=== PATIENT | male | born 1970 | race Caucasian/White ===

== ENCOUNTER 2019-12-06 09:41 | Outpatient (CLI) | payer OTHER, SELFPAY | END 2019-12-06 09:42 | disposition home or self-care (01) | PROVIDERS: Visit Provider Nurse Practitioner Family | DX: I87.2 Venous insufficiency (chronic) (peripheral) (principal); L97.822 Non-pressure chronic ulcer of other part of left lower leg with fat layer exposed | CPT/HCPCS: 87070; 87077; 87176; 87186; 87205 ==

== ENCOUNTER 2019-12-08 07:56 | Outpatient (CLI) | payer OTHER, SELFPAY | END 2019-12-08 07:57 | disposition home or self-care (01) | LOC: WOUND 07:57 | PROVIDERS: Visit Provider Surgery | DX: I87.2 Venous insufficiency (chronic) (peripheral) (principal); L97.222 Non-pressure chronic ulcer of left calf with fat layer exposed | CPT/HCPCS: 29581 ==

== ENCOUNTER 2019-12-11 10:50 | Outpatient (CLI) | payer OTHER, SELFPAY | END 2019-12-11 10:51 | disposition home or self-care (01) | LOC: WOUND 10:50 | PROVIDERS: Visit Provider Nurse Practitioner Family | DX: I87.2 Venous insufficiency (chronic) (peripheral) (principal); L97.222 Non-pressure chronic ulcer of left calf with fat layer exposed | CPT/HCPCS: 29581 ==

== ENCOUNTER 2019-12-13 15:28 | Outpatient (CLI) | payer OTHER, SELFPAY | END 2019-12-13 15:29 | disposition home or self-care (01) | LOC: WOUND 15:28 | PROVIDERS: Visit Provider Thoracic Surgery (Cardiothoracic Vascular Surgery) | DX: I87.2 Venous insufficiency (chronic) (peripheral) (principal); L97.822 Non-pressure chronic ulcer of other part of left lower leg with fat layer exposed | CPT/HCPCS: 11042; 11045 ==

== ENCOUNTER 2019-12-18 09:08 | Outpatient (CLI) | payer OTHER, SELFPAY | END 2019-12-18 09:09 | disposition home or self-care (01) | LOC: WOUND 09:10 | PROVIDERS: Visit Provider Nurse Practitioner Family | DX: I87.2 Venous insufficiency (chronic) (peripheral) (principal); L97.822 Non-pressure chronic ulcer of other part of left lower leg with fat layer exposed | CPT/HCPCS: 11042; 11045 ==

== ENCOUNTER 2019-12-20 07:56 | Outpatient (CLI) | payer OTHER, SELFPAY | END 2019-12-20 07:57 | disposition home or self-care (01) | LOC: WOUND 07:57 | PROVIDERS: Visit Provider Nurse Practitioner Family | DX: I87.2 Venous insufficiency (chronic) (peripheral) (principal); L97.222 Non-pressure chronic ulcer of left calf with fat layer exposed | CPT/HCPCS: 29581 ==

== ENCOUNTER 2019-12-22 08:01 | Outpatient (CLI) | payer OTHER, SELFPAY | END 2019-12-22 08:02 | disposition home or self-care (01) | LOC: WOUND 08:01 | PROVIDERS: Visit Provider Surgery | DX: I87.2 Venous insufficiency (chronic) (peripheral) (principal); L97.222 Non-pressure chronic ulcer of left calf with fat layer exposed | CPT/HCPCS: 29581 ==

== ENCOUNTER 2019-12-25 07:58 | Outpatient (CLI) | payer OTHER, SELFPAY | END 2019-12-25 07:59 | disposition home or self-care (01) | LOC: WOUND 07:58 | PROVIDERS: Visit Provider Nurse Practitioner Family | DX: I87.2 Venous insufficiency (chronic) (peripheral) (principal); L97.822 Non-pressure chronic ulcer of other part of left lower leg with fat layer exposed | CPT/HCPCS: 29581 ==

== ENCOUNTER 2019-12-27 08:10 | Outpatient (CLI) | payer OTHER, SELFPAY | END 2019-12-27 08:11 | disposition home or self-care (01) | LOC: WOUND 08:10 | PROVIDERS: Visit Provider Thoracic Surgery (Cardiothoracic Vascular Surgery) | DX: I87.2 Venous insufficiency (chronic) (peripheral) (principal); L97.222 Non-pressure chronic ulcer of left calf with fat layer exposed | CPT/HCPCS: 29581 ==

== ENCOUNTER 2019-12-29 08:02 | Outpatient (CLI) | payer OTHER, SELFPAY | END 2019-12-29 08:03 | disposition home or self-care (01) | LOC: WOUND 08:03 | PROVIDERS: Visit Provider Surgery | DX: I87.2 Venous insufficiency (chronic) (peripheral) (principal); L97.222 Non-pressure chronic ulcer of left calf with fat layer exposed | CPT/HCPCS: 29581 ==

== ENCOUNTER 2020-01-01 08:13 | Outpatient (CLI) | payer OTHER, SELFPAY | END 2020-01-01 08:14 | disposition home or self-care (01) | LOC: WOUND 08:14 | PROVIDERS: Visit Provider Nurse Practitioner Family | DX: I87.2 Venous insufficiency (chronic) (peripheral) (principal); L97.822 Non-pressure chronic ulcer of other part of left lower leg with fat layer exposed | CPT/HCPCS: 11042; 11045 ==

== ENCOUNTER 2020-01-03 08:12 | Outpatient (CLI) | payer OTHER, SELFPAY | END 2020-01-03 08:13 | disposition home or self-care (01) | LOC: WOUND 08:12 | PROVIDERS: Visit Provider Thoracic Surgery (Cardiothoracic Vascular Surgery) | DX: I87.2 Venous insufficiency (chronic) (peripheral) (principal); L97.222 Non-pressure chronic ulcer of left calf with fat layer exposed | CPT/HCPCS: 29581 ==

== ENCOUNTER 2020-01-05 08:06 | Outpatient (CLI) | payer OTHER, SELFPAY | END 2020-01-05 08:07 | disposition home or self-care (01) | LOC: WOUND 08:07 | PROVIDERS: Visit Provider Surgery | DX: I87.2 Venous insufficiency (chronic) (peripheral) (principal); L97.222 Non-pressure chronic ulcer of left calf with fat layer exposed | CPT/HCPCS: 29581 ==

== ENCOUNTER 2020-01-08 08:06 | Outpatient (CLI) | payer OTHER, SELFPAY | END 2020-01-08 08:07 | disposition home or self-care (01) | LOC: WOUND 08:06 | PROVIDERS: Visit Provider Nurse Practitioner Family | DX: I87.2 Venous insufficiency (chronic) (peripheral) (principal); L97.822 Non-pressure chronic ulcer of other part of left lower leg with fat layer exposed | CPT/HCPCS: 11042; 11045 ==

== ENCOUNTER 2020-01-10 08:04 | Outpatient (CLI) | payer OTHER, SELFPAY | END 2020-01-10 08:05 | disposition home or self-care (01) | LOC: WOUND 08:05 | PROVIDERS: Visit Provider Thoracic Surgery (Cardiothoracic Vascular Surgery) | DX: I87.2 Venous insufficiency (chronic) (peripheral) (principal); L97.822 Non-pressure chronic ulcer of other part of left lower leg with fat layer exposed | CPT/HCPCS: 11042; 11045; 87070; 87077; 87176; 87186; 87205 ==

== ENCOUNTER 2020-01-12 08:03 | Outpatient (CLI) | payer OTHER, SELFPAY | END 2020-01-12 08:04 | disposition home or self-care (01) | LOC: WOUND 08:03 | PROVIDERS: Visit Provider Nurse Practitioner Family | DX: I87.2 Venous insufficiency (chronic) (peripheral) (principal); L97.222 Non-pressure chronic ulcer of left calf with fat layer exposed | CPT/HCPCS: 29581 ==

== ENCOUNTER 2020-01-15 08:02 | Outpatient (CLI) | payer OTHER, SELFPAY | END 2020-01-15 08:03 | disposition home or self-care (01) | LOC: WOUND 08:03 | PROVIDERS: Visit Provider Nurse Practitioner Family | DX: I87.2 Venous insufficiency (chronic) (peripheral) (principal); L97.822 Non-pressure chronic ulcer of other part of left lower leg with fat layer exposed | CPT/HCPCS: 11042; 11045 ==

== ENCOUNTER 2020-01-17 16:07 | Outpatient (CLI) | payer OTHER, SELFPAY | END 2020-01-17 16:08 | disposition home or self-care (01) | LOC: WOUND 16:08 | PROVIDERS: Visit Provider Thoracic Surgery (Cardiothoracic Vascular Surgery) | DX: I87.2 Venous insufficiency (chronic) (peripheral) (principal); L97.222 Non-pressure chronic ulcer of left calf with fat layer exposed | CPT/HCPCS: 29581 ==

== ENCOUNTER 2020-01-19 08:09 | Outpatient (CLI) | payer OTHER, SELFPAY | END 2020-01-19 08:10 | disposition home or self-care (01) | LOC: WOUND 08:09 | PROVIDERS: Visit Provider Surgery | DX: I87.2 Venous insufficiency (chronic) (peripheral) (principal); L97.222 Non-pressure chronic ulcer of left calf with fat layer exposed | CPT/HCPCS: 29581 ==

== ENCOUNTER 2020-01-22 07:59 | Outpatient (CLI) | payer OTHER, SELFPAY | END 2020-01-22 08:00 | disposition home or self-care (01) | LOC: WOUND 07:59 | PROVIDERS: Visit Provider Nurse Practitioner Family | DX: I87.2 Venous insufficiency (chronic) (peripheral) (principal); L97.822 Non-pressure chronic ulcer of other part of left lower leg with fat layer exposed | CPT/HCPCS: 11042; 11045 ==

== ENCOUNTER 2020-01-24 08:01 | Outpatient (CLI) | payer OTHER, SELFPAY | END 2020-01-24 08:02 | disposition home or self-care (01) | LOC: WOUND 08:02 | PROVIDERS: Visit Provider Nurse Practitioner Family | DX: I87.2 Venous insufficiency (chronic) (peripheral) (principal); L97.222 Non-pressure chronic ulcer of left calf with fat layer exposed | CPT/HCPCS: 29581 ==

== ENCOUNTER 2020-01-26 08:03 | Outpatient (CLI) | payer OTHER, SELFPAY | END 2020-01-26 08:04 | disposition home or self-care (01) | LOC: WOUND 08:03 | PROVIDERS: Visit Provider Surgery | DX: I87.2 Venous insufficiency (chronic) (peripheral) (principal); L97.822 Non-pressure chronic ulcer of other part of left lower leg with fat layer exposed | CPT/HCPCS: 29581 ==

== ENCOUNTER 2020-01-29 07:58 | Outpatient (CLI) | payer OTHER, SELFPAY | END 2020-01-29 07:59 | disposition home or self-care (01) | LOC: WOUND 07:59 | PROVIDERS: Visit Provider Nurse Practitioner Family | DX: I87.2 Venous insufficiency (chronic) (peripheral) (principal); L97.822 Non-pressure chronic ulcer of other part of left lower leg with fat layer exposed | CPT/HCPCS: 11042; 11045 ==

== ENCOUNTER 2020-02-05 08:01 | Outpatient (CLI) | payer OTHER, SELFPAY | END 2020-02-05 08:02 | disposition home or self-care (01) | LOC: WOUND 08:02 | PROVIDERS: Visit Provider Nurse Practitioner Family | DX: I87.2 Venous insufficiency (chronic) (peripheral) (principal); L97.822 Non-pressure chronic ulcer of other part of left lower leg with fat layer exposed | CPT/HCPCS: 11042; 11045 ==

== ENCOUNTER 2020-02-07 13:31 | Outpatient (CLI) | payer OTHER, SELFPAY | END 2020-02-07 13:32 | disposition home or self-care (01) | LOC: WOUND 13:31 | PROVIDERS: Visit Provider Thoracic Surgery (Cardiothoracic Vascular Surgery) | DX: I87.2 Venous insufficiency (chronic) (peripheral) (principal); L97.222 Non-pressure chronic ulcer of left calf with fat layer exposed | CPT/HCPCS: 29581 ==

== ENCOUNTER 2020-02-09 08:00 | Outpatient (CLI) | payer OTHER, SELFPAY | END 2020-02-09 08:01 | disposition home or self-care (01) | LOC: WOUND 08:01 | PROVIDERS: Visit Provider Surgery | DX: I87.2 Venous insufficiency (chronic) (peripheral) (principal); L97.822 Non-pressure chronic ulcer of other part of left lower leg with fat layer exposed | CPT/HCPCS: 29581 ==

== ENCOUNTER 2020-02-12 07:58 | Outpatient (CLI) | payer OTHER, SELFPAY | END 2020-02-12 07:59 | disposition home or self-care (01) | LOC: WOUND 07:59 | PROVIDERS: Visit Provider Nurse Practitioner Family | DX: I87.2 Venous insufficiency (chronic) (peripheral) (principal); L97.822 Non-pressure chronic ulcer of other part of left lower leg with fat layer exposed | CPT/HCPCS: 11042; 11045 ==

== ENCOUNTER 2020-02-14 08:11 | Outpatient (CLI) | payer OTHER, SELFPAY | END 2020-02-14 08:12 | disposition home or self-care (01) | LOC: WOUND 08:12 | PROVIDERS: Visit Provider Nurse Practitioner Family | DX: M86.672 Other chronic osteomyelitis, left ankle and foot (principal) | CPT/HCPCS: 29581 ==

== ENCOUNTER 2020-02-16 08:12 | Outpatient (RCR) | payer OTHER, SELFPAY | END 2020-03-07 23:59 | disposition home or self-care (01) | LOC: WOUND 08:12 | PROVIDERS: Visit Provider Surgery | DX: I87.2 Venous insufficiency (chronic) (peripheral) (principal); L97.222 Non-pressure chronic ulcer of left calf with fat layer exposed | CPT/HCPCS: 29581 ==

== ENCOUNTER 2020-02-19 07:57 | Outpatient (CLI) | payer OTHER, SELFPAY | END 2020-02-19 07:58 | disposition home or self-care (01) | LOC: WOUND 07:57 | PROVIDERS: Visit Provider Nurse Practitioner Family | DX: I87.2 Venous insufficiency (chronic) (peripheral) (principal); L97.822 Non-pressure chronic ulcer of other part of left lower leg with fat layer exposed | CPT/HCPCS: 11042; 11045 ==

== ENCOUNTER 2020-02-21 08:04 | Outpatient (CLI) | payer OTHER, SELFPAY | END 2020-02-21 08:05 | disposition home or self-care (01) | LOC: WOUND 08:05 | PROVIDERS: Visit Provider Thoracic Surgery (Cardiothoracic Vascular Surgery) | DX: I87.2 Venous insufficiency (chronic) (peripheral) (principal); L97.222 Non-pressure chronic ulcer of left calf with fat layer exposed | CPT/HCPCS: 29581 ==

== ENCOUNTER 2020-02-23 08:23 | Outpatient (CLI) | payer OTHER, SELFPAY | END 2020-02-23 08:24 | disposition home or self-care (01) | LOC: WOUND 08:24 | PROVIDERS: Visit Provider Surgery | DX: I87.2 Venous insufficiency (chronic) (peripheral) (principal); L97.822 Non-pressure chronic ulcer of other part of left lower leg with fat layer exposed | CPT/HCPCS: 11042; 11045 ==

== ENCOUNTER 2020-02-26 08:03 | Outpatient (CLI) | payer OTHER, SELFPAY | END 2020-02-26 08:04 | disposition home or self-care (01) | LOC: WOUND 08:03 | PROVIDERS: Visit Provider Nurse Practitioner Family | DX: I87.2 Venous insufficiency (chronic) (peripheral) (principal); L97.822 Non-pressure chronic ulcer of other part of left lower leg with fat layer exposed | CPT/HCPCS: 11042; 11045 ==

== ENCOUNTER 2020-02-28 08:09 | Outpatient (CLI) | payer OTHER, SELFPAY | END 2020-02-28 08:10 | disposition home or self-care (01) | LOC: WOUND 08:10 | PROVIDERS: Visit Provider Nurse Practitioner Family | DX: I87.2 Venous insufficiency (chronic) (peripheral) (principal); L97.222 Non-pressure chronic ulcer of left calf with fat layer exposed | CPT/HCPCS: 29581 ==

== ENCOUNTER 2020-03-04 08:01 | Outpatient (CLI) | payer OTHER, SELFPAY | END 2020-03-04 08:02 | disposition home or self-care (01) | LOC: WOUND 08:01 | PROVIDERS: Visit Provider Nurse Practitioner Family | DX: I87.2 Venous insufficiency (chronic) (peripheral) (principal); L97.822 Non-pressure chronic ulcer of other part of left lower leg with fat layer exposed | CPT/HCPCS: 11042; 11045 ==

== ENCOUNTER 2020-03-07 08:03 | Outpatient (CLI) | payer OTHER, SELFPAY | END 2020-03-07 08:04 | disposition home or self-care (01) | LOC: WOUND 08:03 | PROVIDERS: Visit Provider Nurse Practitioner Family | DX: I87.2 Venous insufficiency (chronic) (peripheral) (principal); L97.222 Non-pressure chronic ulcer of left calf with fat layer exposed | CPT/HCPCS: 29581 ==

== ENCOUNTER 2020-03-11 08:10 | Outpatient (CLI) | payer OTHER, SELFPAY | END 2020-03-11 08:11 | disposition home or self-care (01) | LOC: WOUND 08:11 | PROVIDERS: Visit Provider Nurse Practitioner Family | DX: I87.2 Venous insufficiency (chronic) (peripheral) (principal); L97.822 Non-pressure chronic ulcer of other part of left lower leg with fat layer exposed | CPT/HCPCS: 11042; 11045 ==

== ENCOUNTER 2020-03-13 08:01 | Outpatient (CLI) | payer OTHER, SELFPAY | END 2020-03-13 08:02 | disposition home or self-care (01) | LOC: WOUND 08:01 | PROVIDERS: Visit Provider Thoracic Surgery (Cardiothoracic Vascular Surgery) | DX: I87.2 Venous insufficiency (chronic) (peripheral) (principal); L97.222 Non-pressure chronic ulcer of left calf with fat layer exposed | CPT/HCPCS: 29581 ==

== ENCOUNTER 2020-03-15 08:03 | Outpatient (CLI) | payer OTHER, SELFPAY | END 2020-03-15 08:04 | disposition home or self-care (01) | LOC: WOUND 08:04 | PROVIDERS: Visit Provider Surgery | DX: I87.2 Venous insufficiency (chronic) (peripheral) (principal); L97.222 Non-pressure chronic ulcer of left calf with fat layer exposed | CPT/HCPCS: 29581 ==

== ENCOUNTER 2020-03-18 08:09 | Outpatient (CLI) | payer OTHER, SELFPAY | END 2020-03-18 08:10 | disposition home or self-care (01) | LOC: WOUND 08:09 | PROVIDERS: Visit Provider Nurse Practitioner Family | DX: I87.2 Venous insufficiency (chronic) (peripheral) (principal); L97.822 Non-pressure chronic ulcer of other part of left lower leg with fat layer exposed | CPT/HCPCS: 11042 ==

== ENCOUNTER 2020-03-20 08:21 | Outpatient (CLI) | payer OTHER, SELFPAY | END 2020-03-20 08:22 | disposition home or self-care (01) | LOC: WOUND 08:21 | PROVIDERS: Visit Provider Thoracic Surgery (Cardiothoracic Vascular Surgery) | DX: I87.2 Venous insufficiency (chronic) (peripheral) (principal); I70.242 Atherosclerosis of native arteries of left leg with ulceration of calf; L97.222 Non-pressure chronic ulcer of left calf with fat layer exposed | CPT/HCPCS: 29581 ==

== ENCOUNTER 2020-03-22 08:08 | Outpatient (CLI) | payer OTHER, SELFPAY | END 2020-03-22 08:09 | disposition home or self-care (01) | LOC: WOUND 08:09 | PROVIDERS: Visit Provider Surgery | DX: I87.2 Venous insufficiency (chronic) (peripheral) (principal); I70.242 Atherosclerosis of native arteries of left leg with ulceration of calf; L97.222 Non-pressure chronic ulcer of left calf with fat layer exposed | CPT/HCPCS: 29581 ==

== ENCOUNTER 2020-03-25 08:04 | Outpatient (CLI) | payer OTHER, SELFPAY | END 2020-03-25 08:05 | disposition home or self-care (01) | LOC: WOUND 08:05 | PROVIDERS: Visit Provider Nurse Practitioner Family | DX: L97.822 Non-pressure chronic ulcer of other part of left lower leg with fat layer exposed (principal) | CPT/HCPCS: 11042 ==

== ENCOUNTER 2020-03-27 07:53 | Outpatient (CLI) | payer OTHER, SELFPAY | END 2020-03-27 07:54 | disposition home or self-care (01) | LOC: WOUND 07:53 | PROVIDERS: Visit Provider Thoracic Surgery (Cardiothoracic Vascular Surgery) | DX: I87.2 Venous insufficiency (chronic) (peripheral) (principal); I70.242 Atherosclerosis of native arteries of left leg with ulceration of calf; L97.222 Non-pressure chronic ulcer of left calf with fat layer exposed | CPT/HCPCS: 29581 ==

== ENCOUNTER 2020-03-29 08:04 | Outpatient (CLI) | payer OTHER, SELFPAY | END 2020-03-29 08:05 | disposition home or self-care (01) | PROVIDERS: Visit Provider Nurse Practitioner Family | DX: I87.2 Venous insufficiency (chronic) (peripheral) (principal); L97.822 Non-pressure chronic ulcer of other part of left lower leg with fat layer exposed | CPT/HCPCS: 29581; 87070; 87077; 87176; 87186; 87205 ==

== ENCOUNTER 2020-04-01 08:15 | Outpatient (CLI) | payer OTHER, SELFPAY | END 2020-04-01 08:16 | disposition home or self-care (01) | LOC: WOUND 08:18 | PROVIDERS: Visit Provider Nurse Practitioner Family | DX: I87.2 Venous insufficiency (chronic) (peripheral) (principal); I70.242 Atherosclerosis of native arteries of left leg with ulceration of calf; L97.222 Non-pressure chronic ulcer of left calf with fat layer exposed | CPT/HCPCS: 11042 ==

== ENCOUNTER 2020-04-03 09:52 | Outpatient (CLI) | payer OTHER, SELFPAY | END 2020-04-03 09:53 | disposition home or self-care (01) | LOC: WOUND 09:52 | PROVIDERS: Visit Provider Thoracic Surgery (Cardiothoracic Vascular Surgery) | DX: I87.2 Venous insufficiency (chronic) (peripheral) (principal); I70.242 Atherosclerosis of native arteries of left leg with ulceration of calf; L97.222 Non-pressure chronic ulcer of left calf with fat layer exposed | CPT/HCPCS: 29581 ==

== ENCOUNTER 2020-04-05 08:18 | Outpatient (CLI) | payer OTHER, SELFPAY | END 2020-04-05 08:19 | disposition home or self-care (01) | LOC: WOUND 08:19 | PROVIDERS: Visit Provider Surgery | DX: I87.2 Venous insufficiency (chronic) (peripheral) (principal); I70.242 Atherosclerosis of native arteries of left leg with ulceration of calf; L97.222 Non-pressure chronic ulcer of left calf with fat layer exposed | CPT/HCPCS: 29581 ==

== ENCOUNTER 2020-04-08 08:03 | Outpatient (CLI) | payer OTHER, SELFPAY | END 2020-04-08 08:04 | disposition home or self-care (01) | LOC: WOUND 08:03 | PROVIDERS: Visit Provider Nurse Practitioner Family | DX: A49.02 Methicillin resistant Staphylococcus aureus infection, unspecified site (principal); L97.822 Non-pressure chronic ulcer of other part of left lower leg with fat layer exposed | CPT/HCPCS: 11042 ==

== ENCOUNTER 2020-04-10 09:41 | Outpatient (CLI) | payer OTHER, SELFPAY | END 2020-04-10 09:42 | disposition home or self-care (01) | LOC: WOUND 09:41 | PROVIDERS: Visit Provider Thoracic Surgery (Cardiothoracic Vascular Surgery) | DX: I87.2 Venous insufficiency (chronic) (peripheral) (principal); L97.222 Non-pressure chronic ulcer of left calf with fat layer exposed | CPT/HCPCS: 29581 ==

== ENCOUNTER 2020-04-12 08:34 | Outpatient (CLI) | payer OTHER, SELFPAY | END 2020-04-12 08:35 | disposition home or self-care (01) | LOC: WOUND 08:34 | PROVIDERS: Visit Provider Surgery | DX: I87.2 Venous insufficiency (chronic) (peripheral) (principal); I70.242 Atherosclerosis of native arteries of left leg with ulceration of calf; L97.222 Non-pressure chronic ulcer of left calf with fat layer exposed | CPT/HCPCS: 29581 ==

== ENCOUNTER 2020-04-15 08:00 | Outpatient (CLI) | payer OTHER, SELFPAY | END 2020-04-15 08:01 | disposition home or self-care (01) | PROVIDERS: Visit Provider Nurse Practitioner Family | DX: I87.2 Venous insufficiency (chronic) (peripheral) (principal); L97.822 Non-pressure chronic ulcer of other part of left lower leg with fat layer exposed | CPT/HCPCS: 11042 ==

== ENCOUNTER 2020-04-17 08:51 | Outpatient (CLI) | payer OTHER, SELFPAY | END 2020-04-17 08:52 | disposition home or self-care (01) | LOC: WOUND 08:52 | PROVIDERS: Visit Provider Thoracic Surgery (Cardiothoracic Vascular Surgery) | DX: I87.2 Venous insufficiency (chronic) (peripheral) (principal); I70.242 Atherosclerosis of native arteries of left leg with ulceration of calf; L97.222 Non-pressure chronic ulcer of left calf with fat layer exposed | CPT/HCPCS: 29581 ==

== ENCOUNTER 2020-04-19 08:17 | Outpatient (CLI) | payer OTHER, SELFPAY | END 2020-04-19 08:18 | disposition home or self-care (01) | LOC: WOUND 08:17 | PROVIDERS: Visit Provider Surgery | DX: I87.2 Venous insufficiency (chronic) (peripheral) (principal); I70.242 Atherosclerosis of native arteries of left leg with ulceration of calf; L97.222 Non-pressure chronic ulcer of left calf with fat layer exposed | CPT/HCPCS: 29581 ==

== ENCOUNTER 2020-04-23 09:52 | Outpatient (CLI) | payer OTHER, SELFPAY | END 2020-04-23 09:53 | disposition home or self-care (01) | LOC: WOUND 09:53 | PROVIDERS: Visit Provider Thoracic Surgery (Cardiothoracic Vascular Surgery) | DX: I96 Gangrene, not elsewhere classified (principal); L97.822 Non-pressure chronic ulcer of other part of left lower leg with fat layer exposed | CPT/HCPCS: 11042 ==

== ENCOUNTER 2020-04-26 08:11 | Outpatient (CLI) | payer OTHER, SELFPAY | END 2020-04-26 08:12 | disposition home or self-care (01) | LOC: WOUND 08:11 | PROVIDERS: Visit Provider Surgery | DX: I87.2 Venous insufficiency (chronic) (peripheral) (principal); I70.242 Atherosclerosis of native arteries of left leg with ulceration of calf; L97.222 Non-pressure chronic ulcer of left calf with fat layer exposed | CPT/HCPCS: 29581 ==

== ENCOUNTER 2020-04-30 08:05 | Outpatient (CLI) | payer OTHER, SELFPAY | END 2020-04-30 08:06 | disposition home or self-care (01) | LOC: WOUND 08:06 | PROVIDERS: Visit Provider Thoracic Surgery (Cardiothoracic Vascular Surgery) | DX: L97.822 Non-pressure chronic ulcer of other part of left lower leg with fat layer exposed (principal) | CPT/HCPCS: 11042 ==

== ENCOUNTER 2020-05-01 08:04 | Outpatient (CLI) | payer OTHER, SELFPAY | END 2020-05-01 08:05 | disposition home or self-care (01) | LOC: WOUND 08:06 | PROVIDERS: Visit Provider Thoracic Surgery (Cardiothoracic Vascular Surgery) | DX: I87.2 Venous insufficiency (chronic) (peripheral) (principal); I70.242 Atherosclerosis of native arteries of left leg with ulceration of calf; L97.222 Non-pressure chronic ulcer of left calf with fat layer exposed | CPT/HCPCS: 29581 ==

== ENCOUNTER 2020-05-03 08:24 | Outpatient (CLI) | payer OTHER, SELFPAY | END 2020-05-03 08:25 | disposition home or self-care (01) | LOC: WOUND 08:25 | PROVIDERS: Visit Provider Surgery | DX: I87.2 Venous insufficiency (chronic) (peripheral) (principal); I70.242 Atherosclerosis of native arteries of left leg with ulceration of calf; L97.222 Non-pressure chronic ulcer of left calf with fat layer exposed | CPT/HCPCS: 29581 ==

== ENCOUNTER 2020-05-06 08:05 | Outpatient (CLI) | payer OTHER, SELFPAY | END 2020-05-06 08:06 | disposition home or self-care (01) | LOC: WOUND 08:05 | PROVIDERS: Visit Provider Nurse Practitioner Family | DX: I87.2 Venous insufficiency (chronic) (peripheral) (principal); L97.822 Non-pressure chronic ulcer of other part of left lower leg with fat layer exposed | CPT/HCPCS: 11042 ==

== ENCOUNTER 2020-05-08 08:05 | Outpatient (CLI) | payer OTHER, SELFPAY | END 2020-05-08 08:06 | disposition home or self-care (01) | LOC: WOUND 08:05 | PROVIDERS: Visit Provider Thoracic Surgery (Cardiothoracic Vascular Surgery) | DX: I87.2 Venous insufficiency (chronic) (peripheral) (principal); L97.222 Non-pressure chronic ulcer of left calf with fat layer exposed | CPT/HCPCS: 29581 ==

== ENCOUNTER 2020-05-10 08:09 | Outpatient (CLI) | payer OTHER, SELFPAY | END 2020-05-10 08:10 | disposition home or self-care (01) | LOC: WOUND 08:09 | PROVIDERS: Visit Provider Surgery | DX: I87.2 Venous insufficiency (chronic) (peripheral) (principal); L97.222 Non-pressure chronic ulcer of left calf with fat layer exposed | CPT/HCPCS: 29581 ==

== ENCOUNTER 2020-05-13 08:00 | Outpatient (CLI) | payer OTHER, SELFPAY | END 2020-05-13 08:01 | disposition home or self-care (01) | LOC: WOUND 08:01 | PROVIDERS: Visit Provider Nurse Practitioner Family | DX: I87.2 Venous insufficiency (chronic) (peripheral) (principal); L97.822 Non-pressure chronic ulcer of other part of left lower leg with fat layer exposed | CPT/HCPCS: 11042 ==

== ENCOUNTER 2020-05-15 07:51 | Outpatient (CLI) | payer OTHER, SELFPAY | END 2020-05-15 07:52 | disposition home or self-care (01) | LOC: WOUND 07:52 | PROVIDERS: Visit Provider Thoracic Surgery (Cardiothoracic Vascular Surgery) | DX: I87.2 Venous insufficiency (chronic) (peripheral) (principal); L97.222 Non-pressure chronic ulcer of left calf with fat layer exposed | CPT/HCPCS: 29581 ==

== ENCOUNTER 2020-05-17 08:02 | Outpatient (CLI) | payer OTHER, SELFPAY | END 2020-05-17 08:03 | disposition home or self-care (01) | PROVIDERS: Visit Provider Nurse Practitioner Family | DX: I87.2 Venous insufficiency (chronic) (peripheral) (principal); L97.222 Non-pressure chronic ulcer of left calf with fat layer exposed | CPT/HCPCS: 29581 ==

== ENCOUNTER 2020-05-20 08:07 | Outpatient (CLI) | payer OTHER, SELFPAY | END 2020-05-20 08:08 | disposition home or self-care (01) | LOC: WOUND 08:07 | PROVIDERS: Visit Provider Nurse Practitioner Family | DX: I87.2 Venous insufficiency (chronic) (peripheral) (principal); L97.822 Non-pressure chronic ulcer of other part of left lower leg with fat layer exposed | CPT/HCPCS: 11042 ==

== ENCOUNTER 2020-05-24 07:57 | Outpatient (CLI) | payer OTHER, SELFPAY | END 2020-05-24 07:58 | disposition home or self-care (01) | LOC: WOUND 07:57 | PROVIDERS: Visit Provider Nurse Practitioner Family | DX: I87.2 Venous insufficiency (chronic) (peripheral) (principal); L97.222 Non-pressure chronic ulcer of left calf with fat layer exposed | CPT/HCPCS: 29581 ==

== ENCOUNTER 2020-05-27 07:58 | Outpatient (CLI) | payer OTHER, SELFPAY | END 2020-05-27 07:59 | disposition home or self-care (01) | LOC: WOUND 07:59 | PROVIDERS: Visit Provider Nurse Practitioner Family | DX: I87.2 Venous insufficiency (chronic) (peripheral) (principal); L97.822 Non-pressure chronic ulcer of other part of left lower leg with fat layer exposed | CPT/HCPCS: 11042 ==

== ENCOUNTER 2020-05-29 08:08 | Outpatient (CLI) | payer OTHER, SELFPAY | END 2020-05-29 08:09 | disposition home or self-care (01) | LOC: WOUND 08:08 | PROVIDERS: Visit Provider Thoracic Surgery (Cardiothoracic Vascular Surgery) | DX: I87.2 Venous insufficiency (chronic) (peripheral) (principal); L97.222 Non-pressure chronic ulcer of left calf with fat layer exposed | CPT/HCPCS: 29581 ==

== ENCOUNTER 2020-05-31 08:03 | Outpatient (CLI) | payer OTHER, SELFPAY | END 2020-05-31 08:04 | disposition home or self-care (01) | LOC: WOUND 08:04 | PROVIDERS: Visit Provider Surgery | DX: I87.2 Venous insufficiency (chronic) (peripheral) (principal); L97.222 Non-pressure chronic ulcer of left calf with fat layer exposed | CPT/HCPCS: 29581 ==

== ENCOUNTER 2020-06-03 08:11 | Outpatient (CLI) | payer OTHER, SELFPAY | END 2020-06-03 08:12 | disposition home or self-care (01) | LOC: WOUND 08:14 | PROVIDERS: Visit Provider Nurse Practitioner Family | DX: I87.2 Venous insufficiency (chronic) (peripheral) (principal); L97.822 Non-pressure chronic ulcer of other part of left lower leg with fat layer exposed | CPT/HCPCS: 11042; 87070; 87077; 87176; 87186; 87205 ==

== ENCOUNTER 2020-06-05 08:00 | Outpatient (CLI) | payer OTHER, SELFPAY | END 2020-06-05 08:01 | disposition home or self-care (01) | LOC: WOUND 08:04 | PROVIDERS: Visit Provider Thoracic Surgery (Cardiothoracic Vascular Surgery) | DX: I87.2 Venous insufficiency (chronic) (peripheral) (principal); L97.222 Non-pressure chronic ulcer of left calf with fat layer exposed | CPT/HCPCS: 29581 ==

== ENCOUNTER 2020-06-07 08:06 | Outpatient (CLI) | payer OTHER, SELFPAY | END 2020-06-07 08:07 | disposition home or self-care (01) | LOC: WOUND 08:06 | PROVIDERS: Visit Provider Surgery | DX: I87.2 Venous insufficiency (chronic) (peripheral) (principal); L97.222 Non-pressure chronic ulcer of left calf with fat layer exposed | CPT/HCPCS: 29581 ==

== ENCOUNTER 2020-06-10 08:02 | Outpatient (CLI) | payer OTHER, SELFPAY | END 2020-06-10 08:03 | disposition home or self-care (01) | LOC: WOUND 08:02 | PROVIDERS: Visit Provider Nurse Practitioner Family | DX: I87.2 Venous insufficiency (chronic) (peripheral) (principal); L97.822 Non-pressure chronic ulcer of other part of left lower leg with fat layer exposed | CPT/HCPCS: 11042 ==

== ENCOUNTER 2020-06-12 07:58 | Outpatient (CLI) | payer OTHER, SELFPAY | END 2020-06-12 07:59 | disposition home or self-care (01) | LOC: WOUND 07:58 | PROVIDERS: Visit Provider Thoracic Surgery (Cardiothoracic Vascular Surgery) | DX: I87.2 Venous insufficiency (chronic) (peripheral) (principal); L97.222 Non-pressure chronic ulcer of left calf with fat layer exposed | CPT/HCPCS: 29581 ==

== ENCOUNTER 2020-06-14 08:21 | Outpatient (CLI) | payer OTHER, SELFPAY | END 2020-06-14 08:22 | disposition home or self-care (01) | LOC: WOUND 08:22 | PROVIDERS: Visit Provider Surgery | DX: I87.2 Venous insufficiency (chronic) (peripheral) (principal); L97.222 Non-pressure chronic ulcer of left calf with fat layer exposed | CPT/HCPCS: 29581 ==

== ENCOUNTER 2020-06-17 07:58 | Outpatient (CLI) | payer OTHER, SELFPAY | END 2020-06-17 07:59 | disposition home or self-care (01) | LOC: WOUND 08:00 | PROVIDERS: Visit Provider Nurse Practitioner Family | DX: L97.822 Non-pressure chronic ulcer of other part of left lower leg with fat layer exposed (principal) | CPT/HCPCS: 11042 ==

== ENCOUNTER 2020-06-19 07:59 | Outpatient (CLI) | payer OTHER, SELFPAY | END 2020-06-19 08:00 | disposition home or self-care (01) | LOC: WOUND 07:59 | PROVIDERS: Visit Provider Nurse Practitioner Family | DX: I87.2 Venous insufficiency (chronic) (peripheral) (principal); L97.222 Non-pressure chronic ulcer of left calf with fat layer exposed | CPT/HCPCS: 29581 ==

== ENCOUNTER 2020-06-21 08:09 | Outpatient (CLI) | payer OTHER, SELFPAY | END 2020-06-21 08:10 | disposition home or self-care (01) | LOC: WOUND 08:09 | PROVIDERS: Visit Provider Surgery | DX: I87.2 Venous insufficiency (chronic) (peripheral) (principal); L97.222 Non-pressure chronic ulcer of left calf with fat layer exposed | CPT/HCPCS: 29581 ==

== ENCOUNTER 2020-06-24 08:02 | Outpatient (CLI) | payer OTHER, SELFPAY | END 2020-06-24 08:03 | disposition home or self-care (01) | LOC: WOUND 08:02 | PROVIDERS: Visit Provider Nurse Practitioner Family | DX: I87.2 Venous insufficiency (chronic) (peripheral) (principal); L97.822 Non-pressure chronic ulcer of other part of left lower leg with fat layer exposed | CPT/HCPCS: 11042 ==

== ENCOUNTER 2020-06-26 08:04 | Outpatient (CLI) | payer OTHER, SELFPAY | END 2020-06-26 08:05 | disposition home or self-care (01) | LOC: WOUND 08:05 | PROVIDERS: Visit Provider Thoracic Surgery (Cardiothoracic Vascular Surgery) | DX: I87.2 Venous insufficiency (chronic) (peripheral) (principal); L97.222 Non-pressure chronic ulcer of left calf with fat layer exposed | CPT/HCPCS: 29581 ==

== ENCOUNTER 2020-06-28 08:17 | Outpatient (CLI) | payer OTHER, SELFPAY | END 2020-06-28 08:18 | disposition home or self-care (01) | LOC: WOUND 08:17 | PROVIDERS: Visit Provider Surgery | DX: I87.2 Venous insufficiency (chronic) (peripheral) (principal); L97.222 Non-pressure chronic ulcer of left calf with fat layer exposed | CPT/HCPCS: 29581 ==

== ENCOUNTER 2020-07-01 08:11 | Outpatient (RCR) | payer OTHER, SELFPAY | END 2020-07-05 23:59 | disposition home or self-care (01) | LOC: WOUND 08:11 | PROVIDERS: Visit Provider Nurse Practitioner Family | DX: I87.2 Venous insufficiency (chronic) (peripheral) (principal); L97.822 Non-pressure chronic ulcer of other part of left lower leg with fat layer exposed | CPT/HCPCS: 11042; 87070; 87077; 87176; 87186; 87205 ==

== ENCOUNTER 2020-07-03 08:03 | Outpatient (CLI) | payer OTHER, SELFPAY | END 2020-07-03 08:04 | disposition home or self-care (01) | LOC: WOUND 08:04 | PROVIDERS: Visit Provider Thoracic Surgery (Cardiothoracic Vascular Surgery) | DX: I87.2 Venous insufficiency (chronic) (peripheral) (principal); L97.222 Non-pressure chronic ulcer of left calf with fat layer exposed | CPT/HCPCS: 29581 ==

== ENCOUNTER 2020-07-05 08:10 | Outpatient (CLI) | payer OTHER, SELFPAY | END 2020-07-05 08:11 | disposition home or self-care (01) | LOC: WOUND 08:11 | PROVIDERS: Visit Provider Nurse Practitioner Family | DX: I87.2 Venous insufficiency (chronic) (peripheral) (principal); L97.222 Non-pressure chronic ulcer of left calf with fat layer exposed | CPT/HCPCS: 29581 ==

== ENCOUNTER 2020-07-08 07:59 | Outpatient (CLI) | payer OTHER, SELFPAY | END 2020-07-08 08:00 | disposition home or self-care (01) | LOC: WOUND 07:59 | PROVIDERS: Visit Provider Nurse Practitioner Family | DX: I87.2 Venous insufficiency (chronic) (peripheral) (principal); L97.822 Non-pressure chronic ulcer of other part of left lower leg with fat layer exposed | CPT/HCPCS: 11042 ==

== ENCOUNTER 2020-07-10 07:54 | Outpatient (CLI) | payer OTHER, SELFPAY | END 2020-07-10 07:55 | disposition home or self-care (01) | LOC: WOUND 07:55 | PROVIDERS: Visit Provider Thoracic Surgery (Cardiothoracic Vascular Surgery) | DX: I87.2 Venous insufficiency (chronic) (peripheral) (principal); L97.222 Non-pressure chronic ulcer of left calf with fat layer exposed | CPT/HCPCS: 29581 ==

== ENCOUNTER 2020-07-12 08:06 | Outpatient (CLI) | payer OTHER, SELFPAY | END 2020-07-12 08:07 | disposition home or self-care (01) | LOC: WOUND 08:07 | PROVIDERS: Visit Provider Surgery | DX: I87.2 Venous insufficiency (chronic) (peripheral) (principal); L97.222 Non-pressure chronic ulcer of left calf with fat layer exposed | CPT/HCPCS: 29581 ==

== ENCOUNTER 2020-07-15 08:15 | Outpatient (CLI) | payer OTHER, SELFPAY | END 2020-07-15 08:16 | disposition home or self-care (01) | LOC: WOUND 08:16 | PROVIDERS: Visit Provider Nurse Practitioner Family | DX: I87.2 Venous insufficiency (chronic) (peripheral) (principal); L97.822 Non-pressure chronic ulcer of other part of left lower leg with fat layer exposed | CPT/HCPCS: 11042 ==

== ENCOUNTER 2020-07-17 07:52 | Outpatient (CLI) | payer OTHER, SELFPAY | END 2020-07-17 07:53 | disposition home or self-care (01) | LOC: WOUND 07:53 | PROVIDERS: Visit Provider Thoracic Surgery (Cardiothoracic Vascular Surgery) | DX: I87.2 Venous insufficiency (chronic) (peripheral) (principal); L97.222 Non-pressure chronic ulcer of left calf with fat layer exposed | CPT/HCPCS: 29581 ==

== ENCOUNTER 2020-07-19 07:55 | Outpatient (CLI) | payer OTHER, SELFPAY | END 2020-07-19 07:56 | disposition home or self-care (01) | LOC: WOUND 07:56 | PROVIDERS: Visit Provider Nurse Practitioner Family | DX: I87.2 Venous insufficiency (chronic) (peripheral) (principal); L97.222 Non-pressure chronic ulcer of left calf with fat layer exposed | CPT/HCPCS: 29581 ==

== ENCOUNTER 2020-07-22 07:52 | Outpatient (CLI) | payer OTHER, SELFPAY | END 2020-07-22 07:53 | disposition home or self-care (01) | LOC: WOUND 07:52 | PROVIDERS: Visit Provider Nurse Practitioner Family | DX: I87.2 Venous insufficiency (chronic) (peripheral) (principal); L97.822 Non-pressure chronic ulcer of other part of left lower leg with fat layer exposed | CPT/HCPCS: 11042 ==

== ENCOUNTER 2020-07-25 08:01 | Outpatient (CLI) | payer OTHER, SELFPAY | END 2020-07-25 08:02 | disposition home or self-care (01) | LOC: WOUND 08:02 | PROVIDERS: Visit Provider Thoracic Surgery (Cardiothoracic Vascular Surgery) | DX: I87.2 Venous insufficiency (chronic) (peripheral) (principal); L97.222 Non-pressure chronic ulcer of left calf with fat layer exposed; I70.242 Atherosclerosis of native arteries of left leg with ulceration of calf | CPT/HCPCS: 29581 ==

== ENCOUNTER 2020-07-29 13:08 | Outpatient (CLI) | payer OTHER, SELFPAY | END 2020-07-29 13:09 | disposition home or self-care (01) | LOC: WOUND 13:08 | PROVIDERS: Visit Provider Surgery | DX: I87.2 Venous insufficiency (chronic) (peripheral) (principal); L97.222 Non-pressure chronic ulcer of left calf with fat layer exposed; I70.242 Atherosclerosis of native arteries of left leg with ulceration of calf | CPT/HCPCS: 29581 ==

== ENCOUNTER 2020-08-01 08:07 | Outpatient (CLI) | payer OTHER, SELFPAY | END 2020-08-01 08:08 | disposition home or self-care (01) | LOC: WOUND 08:07 | PROVIDERS: Visit Provider Nurse Practitioner Family | DX: I87.2 Venous insufficiency (chronic) (peripheral) (principal); L97.822 Non-pressure chronic ulcer of other part of left lower leg with fat layer exposed | CPT/HCPCS: 11043 ==

== ENCOUNTER 2020-08-06 08:01 | Outpatient (CLI) | payer OTHER, SELFPAY | END 2020-08-06 08:02 | disposition home or self-care (01) | LOC: WOUND 08:02 | PROVIDERS: Visit Provider Thoracic Surgery (Cardiothoracic Vascular Surgery) | DX: I87.2 Venous insufficiency (chronic) (peripheral) (principal); L97.222 Non-pressure chronic ulcer of left calf with fat layer exposed; I70.242 Atherosclerosis of native arteries of left leg with ulceration of calf | CPT/HCPCS: 29581 ==

== ENCOUNTER 2020-08-08 08:00 | Outpatient (CLI) | payer OTHER, SELFPAY | END 2020-08-08 08:01 | disposition home or self-care (01) | LOC: WOUND 08:01 | PROVIDERS: Visit Provider Nurse Practitioner Family | DX: I87.2 Venous insufficiency (chronic) (peripheral) (principal); L97.822 Non-pressure chronic ulcer of other part of left lower leg with fat layer exposed | CPT/HCPCS: 11042 ==

== ENCOUNTER 2020-08-12 07:55 | Outpatient (CLI) | payer OTHER, SELFPAY | END 2020-08-12 07:56 | disposition home or self-care (01) | LOC: WOUND 07:56 | PROVIDERS: Visit Provider Nurse Practitioner Family | DX: I87.2 Venous insufficiency (chronic) (peripheral) (principal); L97.822 Non-pressure chronic ulcer of other part of left lower leg with fat layer exposed | CPT/HCPCS: 11042 ==

== ENCOUNTER 2020-08-15 08:03 | Outpatient (CLI) | payer OTHER, SELFPAY | END 2020-08-15 08:04 | disposition home or self-care (01) | LOC: WOUND 08:05 | PROVIDERS: Visit Provider Nurse Practitioner Family | DX: I87.2 Venous insufficiency (chronic) (peripheral) (principal); L97.222 Non-pressure chronic ulcer of left calf with fat layer exposed; I70.242 Atherosclerosis of native arteries of left leg with ulceration of calf | CPT/HCPCS: 29581 ==

== ENCOUNTER 2020-08-19 08:03 | Outpatient (CLI) | payer OTHER, SELFPAY | END 2020-08-19 08:04 | disposition home or self-care (01) | LOC: WOUND 08:04 | PROVIDERS: Visit Provider Nurse Practitioner Family | DX: I87.2 Venous insufficiency (chronic) (peripheral) (principal); L97.822 Non-pressure chronic ulcer of other part of left lower leg with fat layer exposed | CPT/HCPCS: 11042 ==

== ENCOUNTER 2020-08-21 07:55 | Outpatient (CLI) | payer OTHER, SELFPAY | END 2020-08-21 07:56 | disposition home or self-care (01) | LOC: WOUND 07:56 | PROVIDERS: Visit Provider Thoracic Surgery (Cardiothoracic Vascular Surgery) | DX: I87.2 Venous insufficiency (chronic) (peripheral) (principal); L97.222 Non-pressure chronic ulcer of left calf with fat layer exposed; I70.242 Atherosclerosis of native arteries of left leg with ulceration of calf | CPT/HCPCS: 29581 ==

== ENCOUNTER 2020-08-23 08:01 | Outpatient (CLI) | payer OTHER, SELFPAY | END 2020-08-23 08:02 | disposition home or self-care (01) | LOC: WOUND 08:02 | PROVIDERS: Visit Provider Surgery | DX: I87.2 Venous insufficiency (chronic) (peripheral) (principal); L97.222 Non-pressure chronic ulcer of left calf with fat layer exposed; I70.242 Atherosclerosis of native arteries of left leg with ulceration of calf | CPT/HCPCS: 29581 ==

== ENCOUNTER 2020-08-26 08:02 | Outpatient (CLI) | payer OTHER, SELFPAY | END 2020-08-26 08:03 | disposition home or self-care (01) | LOC: WOUND 08:03 | PROVIDERS: Visit Provider Nurse Practitioner Family | DX: I87.2 Venous insufficiency (chronic) (peripheral) (principal); L97.822 Non-pressure chronic ulcer of other part of left lower leg with fat layer exposed | CPT/HCPCS: 11042 ==

== ENCOUNTER 2020-08-28 08:01 | Outpatient (CLI) | payer OTHER, SELFPAY | END 2020-08-28 08:02 | disposition home or self-care (01) | LOC: WOUND 08:03 | PROVIDERS: Visit Provider Thoracic Surgery (Cardiothoracic Vascular Surgery) | DX: I87.2 Venous insufficiency (chronic) (peripheral) (principal); L97.222 Non-pressure chronic ulcer of left calf with fat layer exposed; I70.242 Atherosclerosis of native arteries of left leg with ulceration of calf | CPT/HCPCS: 29581 ==

== ENCOUNTER 2020-08-30 08:01 | Outpatient (CLI) | payer OTHER, SELFPAY | END 2020-08-30 08:02 | disposition home or self-care (01) | LOC: WOUND 08:02 | PROVIDERS: Visit Provider Surgery | DX: I87.2 Venous insufficiency (chronic) (peripheral) (principal); L97.222 Non-pressure chronic ulcer of left calf with fat layer exposed; I70.242 Atherosclerosis of native arteries of left leg with ulceration of calf | CPT/HCPCS: 29581 ==

== ENCOUNTER 2020-09-02 08:02 | Outpatient (CLI) | payer OTHER, SELFPAY | END 2020-09-02 08:03 | disposition home or self-care (01) | LOC: WOUND 08:04 | PROVIDERS: Visit Provider Nurse Practitioner Family | DX: I87.2 Venous insufficiency (chronic) (peripheral) (principal); L97.822 Non-pressure chronic ulcer of other part of left lower leg with fat layer exposed | CPT/HCPCS: 11042 ==

== ENCOUNTER 2020-09-06 07:54 | Outpatient (CLI) | payer OTHER, SELFPAY | END 2020-09-06 07:55 | disposition home or self-care (01) | LOC: WOUND 07:55 | PROVIDERS: Visit Provider Nurse Practitioner Family | DX: I87.2 Venous insufficiency (chronic) (peripheral) (principal); L97.222 Non-pressure chronic ulcer of left calf with fat layer exposed; I70.242 Atherosclerosis of native arteries of left leg with ulceration of calf | CPT/HCPCS: 29581 ==

== ENCOUNTER 2020-09-10 07:57 | Outpatient (CLI) | payer OTHER, SELFPAY | END 2020-09-10 07:58 | disposition home or self-care (01) | LOC: WOUND 07:58 | PROVIDERS: Visit Provider Thoracic Surgery (Cardiothoracic Vascular Surgery) | DX: I87.2 Venous insufficiency (chronic) (peripheral) (principal); L97.222 Non-pressure chronic ulcer of left calf with fat layer exposed; I70.242 Atherosclerosis of native arteries of left leg with ulceration of calf | CPT/HCPCS: 29581 ==

== ENCOUNTER 2020-09-12 08:22 | Outpatient (CLI) | payer OTHER, SELFPAY | END 2020-09-12 08:23 | disposition home or self-care (01) | LOC: WOUND 08:22 | PROVIDERS: Visit Provider Nurse Practitioner Family | DX: I87.2 Venous insufficiency (chronic) (peripheral) (principal); L97.822 Non-pressure chronic ulcer of other part of left lower leg with fat layer exposed | CPT/HCPCS: 11042 ==

== ENCOUNTER 2020-09-16 08:08 | Outpatient (CLI) | payer OTHER, SELFPAY | END 2020-09-16 08:09 | disposition home or self-care (01) | LOC: WOUND 08:08 | PROVIDERS: Visit Provider Thoracic Surgery (Cardiothoracic Vascular Surgery) | DX: I87.2 Venous insufficiency (chronic) (peripheral) (principal); I70.242 Atherosclerosis of native arteries of left leg with ulceration of calf; L97.222 Non-pressure chronic ulcer of left calf with fat layer exposed | CPT/HCPCS: 29581 ==

== ENCOUNTER 2020-09-20 07:57 | Outpatient (CLI) | payer OTHER, SELFPAY | END 2020-09-20 07:58 | disposition home or self-care (01) | LOC: WOUND 07:57 | PROVIDERS: Visit Provider Surgery | DX: I87.2 Venous insufficiency (chronic) (peripheral) (principal); I70.242 Atherosclerosis of native arteries of left leg with ulceration of calf; L97.222 Non-pressure chronic ulcer of left calf with fat layer exposed | CPT/HCPCS: 29581 ==

== ENCOUNTER 2020-09-23 08:00 | Outpatient (CLI) | payer OTHER, SELFPAY | END 2020-09-23 08:01 | disposition home or self-care (01) | LOC: WOUND 08:02 | PROVIDERS: Visit Provider Nurse Practitioner Family | DX: I87.2 Venous insufficiency (chronic) (peripheral) (principal); L97.822 Non-pressure chronic ulcer of other part of left lower leg with fat layer exposed | CPT/HCPCS: 11042 ==

== ENCOUNTER 2020-09-25 08:09 | Outpatient (CLI) | payer OTHER, SELFPAY | END 2020-09-25 08:10 | disposition home or self-care (01) | LOC: WOUND 08:10 | PROVIDERS: Visit Provider Thoracic Surgery (Cardiothoracic Vascular Surgery) | DX: I87.2 Venous insufficiency (chronic) (peripheral) (principal); I70.242 Atherosclerosis of native arteries of left leg with ulceration of calf; L97.222 Non-pressure chronic ulcer of left calf with fat layer exposed | CPT/HCPCS: 29581 ==

== ENCOUNTER 2020-09-27 07:48 | Outpatient (CLI) | payer OTHER, SELFPAY | END 2020-09-27 07:49 | disposition home or self-care (01) | LOC: WOUND 07:48 | PROVIDERS: Visit Provider Surgery | DX: I87.2 Venous insufficiency (chronic) (peripheral) (principal); I70.242 Atherosclerosis of native arteries of left leg with ulceration of calf; L97.222 Non-pressure chronic ulcer of left calf with fat layer exposed | CPT/HCPCS: 29581 ==

== ENCOUNTER 2020-09-30 07:49 | Outpatient (CLI) | payer OTHER, SELFPAY | END 2020-09-30 07:50 | disposition home or self-care (01) | LOC: WOUND 07:50 | PROVIDERS: Visit Provider Nurse Practitioner Family | DX: I87.2 Venous insufficiency (chronic) (peripheral) (principal); L97.822 Non-pressure chronic ulcer of other part of left lower leg with fat layer exposed | CPT/HCPCS: 11042 ==

== ENCOUNTER 2020-10-03 07:58 | Outpatient (CLI) | payer OTHER, SELFPAY | END 2020-10-03 07:59 | disposition home or self-care (01) | LOC: WOUND 07:58 | PROVIDERS: Visit Provider Nurse Practitioner Family | DX: I87.2 Venous insufficiency (chronic) (peripheral) (principal); I70.242 Atherosclerosis of native arteries of left leg with ulceration of calf; L97.222 Non-pressure chronic ulcer of left calf with fat layer exposed | CPT/HCPCS: 29581 ==

== ENCOUNTER 2020-10-07 08:00 | Outpatient (CLI) | payer OTHER, SELFPAY | END 2020-10-07 08:01 | disposition home or self-care (01) | LOC: WOUND 08:02 | PROVIDERS: Visit Provider Nurse Practitioner Family | DX: I87.2 Venous insufficiency (chronic) (peripheral) (principal); L97.822 Non-pressure chronic ulcer of other part of left lower leg with fat layer exposed | CPT/HCPCS: 15271; C1849 ==

== ENCOUNTER 2020-10-10 07:56 | Outpatient (CLI) | payer OTHER, SELFPAY | END 2020-10-10 07:57 | disposition home or self-care (01) | LOC: WOUND 07:56 | PROVIDERS: Visit Provider Emergency Medicine | DX: I87.2 Venous insufficiency (chronic) (peripheral) (principal); L97.222 Non-pressure chronic ulcer of left calf with fat layer exposed; I70.242 Atherosclerosis of native arteries of left leg with ulceration of calf | CPT/HCPCS: 29581 ==

== ENCOUNTER 2020-10-14 07:58 | Outpatient (CLI) | payer OTHER, SELFPAY | END 2020-10-14 07:59 | disposition home or self-care (01) | LOC: WOUND 07:58 | PROVIDERS: Visit Provider Nurse Practitioner Family | DX: I87.2 Venous insufficiency (chronic) (peripheral) (principal); L97.822 Non-pressure chronic ulcer of other part of left lower leg with fat layer exposed | CPT/HCPCS: 11042 ==

== ENCOUNTER 2020-10-17 07:57 | Outpatient (CLI) | payer OTHER, SELFPAY | END 2020-10-17 07:58 | disposition home or self-care (01) | LOC: WOUND 07:57 | PROVIDERS: Visit Provider Nurse Practitioner Family | DX: I87.2 Venous insufficiency (chronic) (peripheral) (principal); L97.822 Non-pressure chronic ulcer of other part of left lower leg with fat layer exposed | CPT/HCPCS: 29581 ==

== ENCOUNTER 2020-10-21 07:59 | Outpatient (CLI) | payer OTHER, SELFPAY | END 2020-10-21 08:00 | disposition home or self-care (01) | LOC: WOUND 08:02 | PROVIDERS: Visit Provider Emergency Medicine | DX: I87.2 Venous insufficiency (chronic) (peripheral) (principal); L97.822 Non-pressure chronic ulcer of other part of left lower leg with fat layer exposed | CPT/HCPCS: 11042; 99212 ==

== ENCOUNTER 2020-10-23 07:54 | Outpatient (CLI) | payer OTHER, SELFPAY | END 2020-10-23 07:55 | disposition home or self-care (01) | LOC: WOUND 07:56 | PROVIDERS: Visit Provider Thoracic Surgery (Cardiothoracic Vascular Surgery) | DX: I87.2 Venous insufficiency (chronic) (peripheral) (principal); L97.222 Non-pressure chronic ulcer of left calf with fat layer exposed; I70.242 Atherosclerosis of native arteries of left leg with ulceration of calf | CPT/HCPCS: 29581 ==

== ENCOUNTER 2020-10-25 07:58 | Outpatient (CLI) | payer OTHER, SELFPAY | END 2020-10-25 07:59 | disposition home or self-care (01) | LOC: WOUND 07:59 | PROVIDERS: Visit Provider Surgery | DX: I87.2 Venous insufficiency (chronic) (peripheral) (principal); L97.222 Non-pressure chronic ulcer of left calf with fat layer exposed; I70.242 Atherosclerosis of native arteries of left leg with ulceration of calf | CPT/HCPCS: 29581 ==

== ENCOUNTER 2020-10-28 07:57 | Outpatient (CLI) | payer OTHER, SELFPAY | END 2020-10-28 07:58 | disposition home or self-care (01) | LOC: WOUND 07:58 | PROVIDERS: Visit Provider Emergency Medicine | DX: I87.2 Venous insufficiency (chronic) (peripheral) (principal); L97.822 Non-pressure chronic ulcer of other part of left lower leg with fat layer exposed | CPT/HCPCS: 11042 ==

== ENCOUNTER 2020-10-30 07:56 | Outpatient (CLI) | payer OTHER, SELFPAY | END 2020-10-30 07:57 | disposition home or self-care (01) | LOC: WOUND 07:58 | PROVIDERS: Visit Provider Nurse Practitioner Family | DX: I87.2 Venous insufficiency (chronic) (peripheral) (principal); I70.242 Atherosclerosis of native arteries of left leg with ulceration of calf; L97.222 Non-pressure chronic ulcer of left calf with fat layer exposed | CPT/HCPCS: 29581 ==

== ENCOUNTER 2020-11-01 08:00 | Outpatient (CLI) | payer OTHER, SELFPAY | END 2020-11-01 08:01 | disposition home or self-care (01) | LOC: WOUND 08:01 | PROVIDERS: Visit Provider Surgery | DX: I87.2 Venous insufficiency (chronic) (peripheral) (principal); I70.242 Atherosclerosis of native arteries of left leg with ulceration of calf; L97.222 Non-pressure chronic ulcer of left calf with fat layer exposed | CPT/HCPCS: 29581 ==

== ENCOUNTER 2020-11-04 08:01 | Outpatient (CLI) | payer OTHER, SELFPAY | END 2020-11-04 08:02 | disposition home or self-care (01) | LOC: WOUND 08:03 | PROVIDERS: Visit Provider Emergency Medicine | DX: I87.2 Venous insufficiency (chronic) (peripheral) (principal); L97.822 Non-pressure chronic ulcer of other part of left lower leg with fat layer exposed | CPT/HCPCS: 11042 ==

== ENCOUNTER 2020-11-06 07:59 | Outpatient (CLI) | payer OTHER, SELFPAY | END 2020-11-06 08:00 | disposition home or self-care (01) | LOC: WOUND 07:59 | PROVIDERS: Visit Provider Thoracic Surgery (Cardiothoracic Vascular Surgery) | DX: I87.2 Venous insufficiency (chronic) (peripheral) (principal); I70.242 Atherosclerosis of native arteries of left leg with ulceration of calf; L97.222 Non-pressure chronic ulcer of left calf with fat layer exposed | CPT/HCPCS: 29581 ==

== ENCOUNTER 2020-11-08 08:02 | Outpatient (CLI) | payer OTHER, SELFPAY | END 2020-11-08 08:03 | disposition home or self-care (01) | LOC: WOUND 08:02 | PROVIDERS: Visit Provider Emergency Medicine | DX: I87.2 Venous insufficiency (chronic) (peripheral) (principal); I70.242 Atherosclerosis of native arteries of left leg with ulceration of calf; L97.222 Non-pressure chronic ulcer of left calf with fat layer exposed | CPT/HCPCS: 29581 ==

== ENCOUNTER 2020-11-12 07:54 | Outpatient (CLI) | payer OTHER, SELFPAY | END 2020-11-12 07:55 | disposition home or self-care (01) | LOC: WOUND 07:55 | PROVIDERS: Visit Provider Emergency Medicine | DX: I87.2 Venous insufficiency (chronic) (peripheral) (principal); L97.822 Non-pressure chronic ulcer of other part of left lower leg with fat layer exposed | CPT/HCPCS: 11042; 29581 ==

== ENCOUNTER 2020-11-14 08:07 | Outpatient (CLI) | payer OTHER, SELFPAY | END 2020-11-14 08:08 | disposition home or self-care (01) | LOC: WOUND 08:07 | PROVIDERS: Visit Provider Emergency Medicine | DX: I87.2 Venous insufficiency (chronic) (peripheral) (principal); L97.222 Non-pressure chronic ulcer of left calf with fat layer exposed; I70.242 Atherosclerosis of native arteries of left leg with ulceration of calf | CPT/HCPCS: 29581 ==

== ENCOUNTER 2020-11-18 08:01 | Outpatient (CLI) | payer OTHER, SELFPAY | END 2020-11-18 08:02 | disposition home or self-care (01) | LOC: WOUND 08:01 | PROVIDERS: Visit Provider Emergency Medicine | DX: I87.2 Venous insufficiency (chronic) (peripheral) (principal); L97.822 Non-pressure chronic ulcer of other part of left lower leg with fat layer exposed | CPT/HCPCS: 11042; A6252 ==

== ENCOUNTER 2020-11-21 08:03 | Outpatient (CLI) | payer OTHER, SELFPAY | END 2020-11-21 08:04 | disposition home or self-care (01) | LOC: WOUND 08:03 | PROVIDERS: Visit Provider Emergency Medicine | DX: I87.2 Venous insufficiency (chronic) (peripheral) (principal); I70.242 Atherosclerosis of native arteries of left leg with ulceration of calf; L97.222 Non-pressure chronic ulcer of left calf with fat layer exposed | CPT/HCPCS: 29581 ==

== ENCOUNTER 2020-11-25 08:09 | Outpatient (CLI) | payer OTHER, SELFPAY | END 2020-11-25 08:10 | disposition home or self-care (01) | LOC: WOUND 08:10 | PROVIDERS: Visit Provider Emergency Medicine | DX: I87.2 Venous insufficiency (chronic) (peripheral) (principal); L97.822 Non-pressure chronic ulcer of other part of left lower leg with fat layer exposed | CPT/HCPCS: 11042 ==

== ENCOUNTER 2020-11-28 08:00 | Outpatient (CLI) | payer OTHER, SELFPAY | END 2020-11-28 08:01 | disposition home or self-care (01) | LOC: WOUND 08:01 | PROVIDERS: Visit Provider Emergency Medicine | DX: I87.2 Venous insufficiency (chronic) (peripheral) (principal); L97.222 Non-pressure chronic ulcer of left calf with fat layer exposed; I70.242 Atherosclerosis of native arteries of left leg with ulceration of calf | CPT/HCPCS: 29581 ==

== ENCOUNTER 2020-12-02 07:55 | Outpatient (CLI) | payer OTHER, SELFPAY | END 2020-12-02 07:56 | disposition home or self-care (01) | LOC: WOUND 07:56 | PROVIDERS: Visit Provider Emergency Medicine | DX: I87.2 Venous insufficiency (chronic) (peripheral) (principal); L97.822 Non-pressure chronic ulcer of other part of left lower leg with fat layer exposed | CPT/HCPCS: 11043 ==

== ENCOUNTER 2020-12-05 07:59 | Outpatient (CLI) | payer OTHER, SELFPAY | END 2020-12-05 08:00 | disposition home or self-care (01) | LOC: WOUND 08:04 | PROVIDERS: Visit Provider Emergency Medicine | DX: I87.2 Venous insufficiency (chronic) (peripheral) (principal); L97.222 Non-pressure chronic ulcer of left calf with fat layer exposed; I70.242 Atherosclerosis of native arteries of left leg with ulceration of calf | CPT/HCPCS: 29581 ==

== ENCOUNTER 2020-12-09 08:02 | Outpatient (CLI) | payer OTHER, SELFPAY | END 2020-12-09 08:03 | disposition home or self-care (01) | LOC: WOUND 08:04 | PROVIDERS: Visit Provider Emergency Medicine | DX: I87.2 Venous insufficiency (chronic) (peripheral) (principal); L97.822 Non-pressure chronic ulcer of other part of left lower leg with fat layer exposed | CPT/HCPCS: 11042; A6252 ==

== ENCOUNTER 2020-12-13 08:00 | Outpatient (CLI) | payer OTHER, SELFPAY | END 2020-12-13 08:01 | disposition home or self-care (01) | LOC: WOUND 08:00 | PROVIDERS: Visit Provider Surgery | DX: I87.2 Venous insufficiency (chronic) (peripheral) (principal); L97.222 Non-pressure chronic ulcer of left calf with fat layer exposed; I70.242 Atherosclerosis of native arteries of left leg with ulceration of calf | CPT/HCPCS: 29581 ==

== ENCOUNTER 2020-12-16 07:54 | Outpatient (CLI) | payer OTHER, SELFPAY | END 2020-12-16 07:55 | disposition home or self-care (01) | LOC: WOUND 07:54 | PROVIDERS: Visit Provider Emergency Medicine | DX: I87.2 Venous insufficiency (chronic) (peripheral) (principal); L97.822 Non-pressure chronic ulcer of other part of left lower leg with fat layer exposed | CPT/HCPCS: 15271; 29581; A6248; A6250; C1849 ==

== ENCOUNTER 2020-12-19 07:48 | Outpatient (CLI) | payer OTHER, SELFPAY | END 2020-12-19 07:49 | disposition home or self-care (01) | LOC: WOUND 07:49 | PROVIDERS: Visit Provider Emergency Medicine | DX: I87.2 Venous insufficiency (chronic) (peripheral) (principal); L97.222 Non-pressure chronic ulcer of left calf with fat layer exposed; I70.242 Atherosclerosis of native arteries of left leg with ulceration of calf | CPT/HCPCS: A6252 ==

== ENCOUNTER 2020-12-23 07:52 | Outpatient (CLI) | payer OTHER, SELFPAY | END 2020-12-23 07:53 | disposition home or self-care (01) | LOC: WOUND 07:53 | PROVIDERS: Visit Provider Emergency Medicine | DX: I87.2 Venous insufficiency (chronic) (peripheral) (principal); L97.822 Non-pressure chronic ulcer of other part of left lower leg with fat layer exposed | CPT/HCPCS: 29581; A6250 ==

== ENCOUNTER 2020-12-26 08:02 | Outpatient (CLI) | payer OTHER, SELFPAY | END 2020-12-26 08:03 | disposition home or self-care (01) | LOC: WOUND 08:02 | PROVIDERS: Visit Provider Emergency Medicine | DX: I87.2 Venous insufficiency (chronic) (peripheral) (principal); L97.222 Non-pressure chronic ulcer of left calf with fat layer exposed; I70.242 Atherosclerosis of native arteries of left leg with ulceration of calf ==

== ENCOUNTER 2020-12-30 08:07 | Outpatient (CLI) | payer OTHER, SELFPAY | END 2020-12-30 08:08 | disposition home or self-care (01) | LOC: WOUND 08:07 | PROVIDERS: Visit Provider Nurse Practitioner Family | DX: I87.2 Venous insufficiency (chronic) (peripheral) (principal); L97.822 Non-pressure chronic ulcer of other part of left lower leg with fat layer exposed | CPT/HCPCS: 15271; 29581; C1849 ==

== ENCOUNTER 2021-01-02 08:02 | Outpatient (CLI) | payer OTHER, SELFPAY | END 2021-01-02 08:03 | disposition home or self-care (01) | LOC: WOUND 08:02 | PROVIDERS: Visit Provider Nurse Practitioner Family | DX: I87.2 Venous insufficiency (chronic) (peripheral) (principal); L97.222 Non-pressure chronic ulcer of left calf with fat layer exposed; I70.242 Atherosclerosis of native arteries of left leg with ulceration of calf | CPT/HCPCS: A6252 ==

== ENCOUNTER 2021-01-06 07:58 | Outpatient (CLI) | payer OTHER, SELFPAY | END 2021-01-06 07:59 | disposition home or self-care (01) | LOC: WOUND 07:59 | PROVIDERS: Visit Provider Emergency Medicine | DX: I87.2 Venous insufficiency (chronic) (peripheral) (principal); L97.822 Non-pressure chronic ulcer of other part of left lower leg with fat layer exposed | CPT/HCPCS: 15271; A6252; C1849 ==

== ENCOUNTER 2021-01-09 08:01 | Outpatient (CLI) | payer OTHER, SELFPAY | END 2021-01-09 08:02 | disposition home or self-care (01) | LOC: WOUND 08:02 | PROVIDERS: Visit Provider Nurse Practitioner Family | DX: I87.2 Venous insufficiency (chronic) (peripheral) (principal); L97.222 Non-pressure chronic ulcer of left calf with fat layer exposed; I70.242 Atherosclerosis of native arteries of left leg with ulceration of calf | CPT/HCPCS: 29581; A6252 ==

== ENCOUNTER 2021-01-13 07:58 | Outpatient (CLI) | payer OTHER, SELFPAY | END 2021-01-13 07:59 | disposition home or self-care (01) | LOC: WOUND 07:59 | PROVIDERS: Visit Provider Nurse Practitioner Family | DX: I87.2 Venous insufficiency (chronic) (peripheral) (principal); L97.822 Non-pressure chronic ulcer of other part of left lower leg with fat layer exposed | CPT/HCPCS: 11042 ==

== ENCOUNTER 2021-01-14 08:06 | Outpatient (CLI) | payer OTHER, SELFPAY | END 2021-01-14 08:07 | disposition home or self-care (01) | LOC: WOUND 08:09 | PROVIDERS: Visit Provider Nurse Practitioner Family | DX: I87.2 Venous insufficiency (chronic) (peripheral) (principal); L97.222 Non-pressure chronic ulcer of left calf with fat layer exposed; I70.242 Atherosclerosis of native arteries of left leg with ulceration of calf | CPT/HCPCS: 29581; A6253 ==

== ENCOUNTER 2021-01-16 08:12 | Outpatient (CLI) | payer OTHER, SELFPAY | END 2021-01-16 08:13 | disposition home or self-care (01) | LOC: WOUND 08:13 | PROVIDERS: Visit Provider Emergency Medicine | DX: I87.2 Venous insufficiency (chronic) (peripheral) (principal); L97.222 Non-pressure chronic ulcer of left calf with fat layer exposed; I70.242 Atherosclerosis of native arteries of left leg with ulceration of calf | CPT/HCPCS: A6252 ==

== ENCOUNTER 2021-01-20 08:14 | Outpatient (CLI) | payer OTHER, SELFPAY | END 2021-01-20 08:15 | disposition home or self-care (01) | LOC: WOUND 08:15 | PROVIDERS: Visit Provider Emergency Medicine | DX: I87.2 Venous insufficiency (chronic) (peripheral) (principal); L97.822 Non-pressure chronic ulcer of other part of left lower leg with fat layer exposed; I10 Essential (primary) hypertension | CPT/HCPCS: 11042; A6252 ==

== ENCOUNTER 2021-01-23 08:00 | Outpatient (CLI) | payer OTHER, SELFPAY | END 2021-01-23 08:01 | disposition home or self-care (01) | PROVIDERS: Visit Provider Nurse Practitioner Family | DX: I87.2 Venous insufficiency (chronic) (peripheral) (principal); L97.222 Non-pressure chronic ulcer of left calf with fat layer exposed; I70.242 Atherosclerosis of native arteries of left leg with ulceration of calf | CPT/HCPCS: 29581; A6252 ==

== ENCOUNTER 2021-01-27 08:03 | Outpatient (CLI) | payer OTHER, SELFPAY | END 2021-01-27 08:04 | disposition home or self-care (01) | LOC: WOUND 08:04 | PROVIDERS: Visit Provider Emergency Medicine | DX: I87.2 Venous insufficiency (chronic) (peripheral) (principal); L97.822 Non-pressure chronic ulcer of other part of left lower leg with fat layer exposed; I10 Essential (primary) hypertension | CPT/HCPCS: 11042; A6252 ==

== ENCOUNTER 2021-01-28 08:32 | Outpatient (CLI) | payer OTHER, SELFPAY | END 2021-01-28 08:33 | disposition home or self-care (01) | LOC: WOUND 08:35 | PROVIDERS: Visit Provider Nurse Practitioner Family | DX: I87.2 Venous insufficiency (chronic) (peripheral) (principal); L97.222 Non-pressure chronic ulcer of left calf with fat layer exposed; I70.242 Atherosclerosis of native arteries of left leg with ulceration of calf | CPT/HCPCS: 29581; A6252 ==

== ENCOUNTER 2021-02-03 08:02 | Outpatient (CLI) | payer OTHER, SELFPAY | END 2021-02-03 08:03 | disposition home or self-care (01) | LOC: WOUND 08:03 | PROVIDERS: Visit Provider Emergency Medicine | DX: I87.2 Venous insufficiency (chronic) (peripheral) (principal); L97.822 Non-pressure chronic ulcer of other part of left lower leg with fat layer exposed | CPT/HCPCS: 11042; A6252 ==

== ENCOUNTER 2021-02-10 08:04 | Outpatient (CLI) | payer OTHER, SELFPAY | END 2021-02-10 08:05 | disposition home or self-care (01) | LOC: WOUND 08:05 | PROVIDERS: Visit Provider Emergency Medicine | DX: I87.2 Venous insufficiency (chronic) (peripheral) (principal); L97.822 Non-pressure chronic ulcer of other part of left lower leg with fat layer exposed | CPT/HCPCS: 11042; A6252 ==

== ENCOUNTER 2021-02-17 07:59 | Outpatient (CLI) | payer OTHER, SELFPAY | END 2021-02-17 08:00 | disposition home or self-care (01) | LOC: WOUND 07:59 | PROVIDERS: Visit Provider Emergency Medicine | DX: I87.2 Venous insufficiency (chronic) (peripheral) (principal); L97.822 Non-pressure chronic ulcer of other part of left lower leg with fat layer exposed | CPT/HCPCS: 11042; 87070; 87077; 87176; 87186; 87205 ==

== ENCOUNTER 2021-02-24 08:06 | Outpatient (CLI) | payer OTHER, SELFPAY | END 2021-02-24 08:07 | disposition home or self-care (01) | LOC: WOUND 08:07 | PROVIDERS: Visit Provider Nurse Practitioner Family | DX: I87.2 Venous insufficiency (chronic) (peripheral) (principal); L97.822 Non-pressure chronic ulcer of other part of left lower leg with fat layer exposed | CPT/HCPCS: 11042; A6252 ==

== ENCOUNTER 2021-03-03 08:01 | Outpatient (CLI) | payer OTHER, SELFPAY | END 2021-03-03 08:02 | disposition home or self-care (01) | LOC: WOUND 08:02 | PROVIDERS: Visit Provider Nurse Practitioner Family | DX: I87.2 Venous insufficiency (chronic) (peripheral) (principal); L97.822 Non-pressure chronic ulcer of other part of left lower leg with fat layer exposed | CPT/HCPCS: 11042 ==

== ENCOUNTER 2021-03-11 08:06 | Outpatient (CLI) | payer OTHER, SELFPAY | END 2021-03-11 08:07 | disposition home or self-care (01) | LOC: WOUND 08:07 | PROVIDERS: Visit Provider Nurse Practitioner Family | DX: I87.2 Venous insufficiency (chronic) (peripheral) (principal); L97.822 Non-pressure chronic ulcer of other part of left lower leg with fat layer exposed | CPT/HCPCS: 11042; A6252 ==

== ENCOUNTER 2021-03-18 08:05 | Outpatient (CLI) | payer OTHER, SELFPAY | END 2021-03-18 08:06 | disposition home or self-care (01) | LOC: WOUND 08:06 | PROVIDERS: Visit Provider Emergency Medicine | DX: I96 Gangrene, not elsewhere classified (principal); I87.2 Venous insufficiency (chronic) (peripheral); L97.822 Non-pressure chronic ulcer of other part of left lower leg with fat layer exposed | CPT/HCPCS: 11042; A6252 ==

== ENCOUNTER 2021-03-21 08:16 | Outpatient (CLI) | payer OTHER, SELFPAY | END 2021-03-21 08:17 | disposition home or self-care (01) | LOC: WOUND 08:17 | PROVIDERS: Visit Provider Surgery | DX: I70.242 Atherosclerosis of native arteries of left leg with ulceration of calf (principal); L97.222 Non-pressure chronic ulcer of left calf with fat layer exposed; I87.2 Venous insufficiency (chronic) (peripheral) | CPT/HCPCS: 29581; A6252 ==

== ENCOUNTER 2021-03-25 07:55 | Outpatient (CLI) | payer OTHER, SELFPAY | END 2021-03-25 07:56 | disposition home or self-care (01) | LOC: WOUND 07:56 | PROVIDERS: Visit Provider Emergency Medicine | DX: I96 Gangrene, not elsewhere classified (principal); I87.2 Venous insufficiency (chronic) (peripheral); L97.822 Non-pressure chronic ulcer of other part of left lower leg with fat layer exposed | CPT/HCPCS: 11042; A6252 ==

== ENCOUNTER 2021-03-28 08:00 | Outpatient (CLI) | payer OTHER, SELFPAY | END 2021-03-28 08:01 | disposition home or self-care (01) | LOC: WOUND 08:00 | PROVIDERS: Visit Provider Nurse Practitioner Family | DX: I70.242 Atherosclerosis of native arteries of left leg with ulceration of calf (principal); I87.2 Venous insufficiency (chronic) (peripheral); L97.222 Non-pressure chronic ulcer of left calf with fat layer exposed | CPT/HCPCS: 29581; A6252 ==

== ENCOUNTER 2021-04-01 08:01 | Outpatient (CLI) | payer OTHER, SELFPAY | END 2021-04-01 08:02 | disposition home or self-care (01) | LOC: WOUND 08:01 | PROVIDERS: Visit Provider Emergency Medicine | DX: I96 Gangrene, not elsewhere classified (principal); I87.2 Venous insufficiency (chronic) (peripheral); L97.822 Non-pressure chronic ulcer of other part of left lower leg with fat layer exposed | CPT/HCPCS: 11042; 87070; 87077; 87176; 87186; 87205; 99212; A6252 ==

== ENCOUNTER 2021-04-04 08:16 | Outpatient (CLI) | payer OTHER, SELFPAY | END 2021-04-04 08:17 | disposition home or self-care (01) | LOC: WOUND 08:17 | PROVIDERS: Visit Provider Surgery | DX: I70.242 Atherosclerosis of native arteries of left leg with ulceration of calf (principal); I87.2 Venous insufficiency (chronic) (peripheral); L97.222 Non-pressure chronic ulcer of left calf with fat layer exposed | CPT/HCPCS: 29581 ==

== ENCOUNTER 2021-04-08 08:11 | Outpatient (CLI) | payer OTHER, SELFPAY | END 2021-04-08 08:12 | disposition home or self-care (01) | LOC: WOUND 08:11 | PROVIDERS: Visit Provider Emergency Medicine | DX: I96 Gangrene, not elsewhere classified (principal); I87.2 Venous insufficiency (chronic) (peripheral); L97.829 Non-pressure chronic ulcer of other part of left lower leg with unspecified severity; I70.202 Unspecified atherosclerosis of native arteries of extremities, left leg | CPT/HCPCS: 11042; A6253 ==

== ENCOUNTER 2021-04-15 07:57 | Outpatient (CLI) | payer OTHER, SELFPAY | END 2021-04-15 07:58 | disposition home or self-care (01) | LOC: WOUND 07:58 | PROVIDERS: Visit Provider Emergency Medicine | DX: I96 Gangrene, not elsewhere classified (principal); I87.2 Venous insufficiency (chronic) (peripheral); L97.822 Non-pressure chronic ulcer of other part of left lower leg with fat layer exposed | CPT/HCPCS: 11042; 99212; A6252 ==

== ENCOUNTER 2021-04-17 09:49 | Outpatient (CLI) | payer OTHER, SELFPAY ==
--- NOTE | 2021-04-17 10:01 | USCV_ITS ---
Ace Barnett Age: 50 Gender: M : 1970 Exam Date: 04/17/2021 10:25 Ordering Phys: Terri Tanner DO Technologist: CARLI Exam Location: [facility] – [place] Indication: HISTORY: PROCEDURES: FINDINGS: The veins were found to be easily compressible with spontaneous blood flow. Non pulsatile flow pattern. No significant venous reflux were noted CONCLUSIONS No evidence of DVT in the above-mentioned identifiable veins. No significant venous reflux either in the deep or in the superficial veins Dr Trent Martinez MD FAC (Electronically Signed) Final Date: 28 April 2021 15:03 S
== END 2021-04-17 09:50 | disposition home or self-care (01) ==
LOC: RAD 09:50
PROVIDERS: Visit Provider Emergency Medicine
DX: L97.222 Non-pressure chronic ulcer of left calf with fat layer exposed (principal)
CPT/HCPCS: 93971

== ENCOUNTER 2021-04-18 09:52 | Outpatient (CLI) | payer OTHER, SELFPAY ==
--- NOTE | 2021-04-18 10:03 | USR_ITS ---
PROCEDURE INFORMATION: Exam: US Left Noninvasive Physiologic Study of the Lower Extremity Arteries, Limited Exam date and time: 04/18/2021 10:03 AM Age: 50 years old Clinical indication: Injury or trauma; Other: Cut on lat lt lower leg; Wound, open; Left; Lower extremity, lower leg level; Vessel not specified; Injury date: Superficial wound; Injury details: Sees wound clinic non healing for 1 year; Additional info: Non pressure chronic ulcer L calf TECHNIQUE: Imaging protocol: Left Limited bilateral noninvasive physiologic studies of lower extremity arteries. Images were documented and archived. Exam is limited. COMPARISON: No relevant prior studies available. FINDINGS: Left femoral arteries: Blood flow waveforms are normal. Waveforms have sharp upstrokes with scooped or flat interval between peaks. Dicrotic notch is present. Left infrapopliteal arteries: Blood flow waveforms are normal. Waveforms have sharp upstrokes with scooped or flat interval between peaks. Dicrotic notch is present. Left Ankle-Brachial Index: 1.05 Left toe-Brachial Index: 0.94 US/[place] segpressure [place] sgl [id number] IMPRESSION: No evidence of stenosis or occlusion in the lower extremity.
== END 2021-04-18 09:53 | disposition home or self-care (01) ==
PROVIDERS: Visit Provider Emergency Medicine
DX: L97.222 Non-pressure chronic ulcer of left calf with fat layer exposed (principal)
CPT/HCPCS: 93922

== ENCOUNTER 2021-04-18 11:03 | Outpatient (CLI) | payer OTHER, SELFPAY | END 2021-04-18 11:04 | disposition home or self-care (01) | LOC: WOUND 11:04 | PROVIDERS: Visit Provider Surgery | DX: I70.242 Atherosclerosis of native arteries of left leg with ulceration of calf (principal); I87.2 Venous insufficiency (chronic) (peripheral); L97.222 Non-pressure chronic ulcer of left calf with fat layer exposed | CPT/HCPCS: 29581; A6252 ==

== ENCOUNTER 2021-04-22 07:59 | Outpatient (CLI) | payer OTHER, SELFPAY | END 2021-04-22 08:00 | disposition home or self-care (01) | LOC: WOUND 08:00 | PROVIDERS: Visit Provider Emergency Medicine | DX: I96 Gangrene, not elsewhere classified (principal); I87.2 Venous insufficiency (chronic) (peripheral); L97.822 Non-pressure chronic ulcer of other part of left lower leg with fat layer exposed | CPT/HCPCS: 11042; 99212; A6252 ==

== ENCOUNTER 2021-04-25 08:16 | Outpatient (CLI) | payer OTHER, SELFPAY | END 2021-04-25 08:17 | disposition home or self-care (01) | LOC: WOUND 08:25 | PROVIDERS: Visit Provider Thoracic Surgery (Cardiothoracic Vascular Surgery) | DX: I87.2 Venous insufficiency (chronic) (peripheral) (principal); L97.222 Non-pressure chronic ulcer of left calf with fat layer exposed; I70.242 Atherosclerosis of native arteries of left leg with ulceration of calf | CPT/HCPCS: 29581 ==

== ENCOUNTER 2021-04-29 07:59 | Outpatient (CLI) | payer OTHER, SELFPAY | END 2021-04-29 08:00 | disposition home or self-care (01) | LOC: WOUND 08:00 | PROVIDERS: Visit Provider Emergency Medicine | DX: I96 Gangrene, not elsewhere classified (principal); I87.2 Venous insufficiency (chronic) (peripheral); L97.222 Non-pressure chronic ulcer of left calf with fat layer exposed; I70.242 Atherosclerosis of native arteries of left leg with ulceration of calf | CPT/HCPCS: 11042; 88304; 88305; A6251 ==

== ENCOUNTER 2021-05-02 09:17 | Outpatient (CLI) | payer OTHER, SELFPAY | END 2021-05-02 09:18 | disposition home or self-care (01) | LOC: WOUND 09:17 | PROVIDERS: Visit Provider Surgery | DX: I87.2 Venous insufficiency (chronic) (peripheral) (principal); L97.222 Non-pressure chronic ulcer of left calf with fat layer exposed; I70.242 Atherosclerosis of native arteries of left leg with ulceration of calf | CPT/HCPCS: 29581; A6251 ==

== ENCOUNTER 2021-05-06 08:02 | Outpatient (CLI) | payer OTHER, SELFPAY | END 2021-05-06 08:03 | disposition home or self-care (01) | LOC: WOUND 08:03 | PROVIDERS: Visit Provider Thoracic Surgery (Cardiothoracic Vascular Surgery) | DX: L97.222 Non-pressure chronic ulcer of left calf with fat layer exposed (principal); I87.2 Venous insufficiency (chronic) (peripheral); I70.242 Atherosclerosis of native arteries of left leg with ulceration of calf | CPT/HCPCS: 11042; A6210 ==

== ENCOUNTER 2021-05-13 07:55 | Outpatient (RCR) | payer OTHER, SELFPAY | END 2021-06-05 23:59 | disposition home or self-care (01) | LOC: WOUND 07:55 | PROVIDERS: Visit Provider Emergency Medicine | DX: I87.2 Venous insufficiency (chronic) (peripheral) (principal); I96 Gangrene, not elsewhere classified; L97.822 Non-pressure chronic ulcer of other part of left lower leg with fat layer exposed | CPT/HCPCS: 11042; A6252 ==

== ENCOUNTER 2021-05-20 08:00 | Outpatient (CLI) | payer OTHER, SELFPAY | END 2021-05-20 08:01 | disposition home or self-care (01) | LOC: WOUND 13:37 | PROVIDERS: Visit Provider Emergency Medicine | DX: I87.2 Venous insufficiency (chronic) (peripheral) (principal); I96 Gangrene, not elsewhere classified; L97.822 Non-pressure chronic ulcer of other part of left lower leg with fat layer exposed | CPT/HCPCS: 11042; 87070; 87077; 87176; 87186; 87205 ==

== ENCOUNTER 2021-05-23 08:04 | Outpatient (CLI) | payer OTHER, SELFPAY | END 2021-05-23 08:05 | disposition home or self-care (01) | LOC: WOUND 08:05 | PROVIDERS: Visit Provider Nurse Practitioner Family | DX: I87.2 Venous insufficiency (chronic) (peripheral) (principal); I96 Gangrene, not elsewhere classified; L97.822 Non-pressure chronic ulcer of other part of left lower leg with fat layer exposed | CPT/HCPCS: 11042; 29581 ==